=== PATIENT | male | born 2005 | race Caucasian/White ===

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

== ENCOUNTER → 2023-05-08 09:00 | Outpatient (CLI) | payer MEDICAID, SELFPAY ==
[2023-05-08 23:13] LABS: Amphetamine/Metha Screen,Urine Negative ng/ml (<1000); Barbiturates Screen,Urine Negative ng/ml (<200)
[2023-05-08 23:15] LABS: Benzodiazepines Screen,Urine Negative ng/ml (<200)
[2023-05-08 23:17] LABS: Cocaine Screen,Urine Negative ng/ml (<300); Methadone Screen,Urine Negative ng/ml (<300)
[2023-05-08 23:18] LABS: Opiate Screen,Urine Negative ng/ml (<300)
[2023-05-08 23:19] LABS: Phencyclidine Screen,Urine Negative ng/ml (<25)
[2023-05-08 23:24] LABS: Cannabinoid Screen,Urine Positive ng/ml (<50)
== END ==
PROVIDERS: PCP Physician Assistant; Visit Provider Family Medicine
DX: Z79.899 Other long term (current) drug therapy (principal)
CPT/HCPCS: 80305

== ENCOUNTER 2023-06-10 18:11 | Outpatient (CLI) | payer MEDICAID, SELFPAY ==
[2023-06-10 21:07] LABS: Barbiturates Screen,Urine Negative ng/ml (<200); Benzodiazepines Screen,Urine Negative ng/ml (<200); Cannabinoid Screen,Urine Positive ng/ml (<50); Methadone Screen,Urine Negative ng/ml (<300); Opiate Screen,Urine Negative ng/ml (<300); Phencyclidine Screen,Urine Negative ng/ml (<25)
[2023-06-10 21:13] LABS: Cocaine Screen,Urine Negative ng/ml (<300)
[2023-06-11 14:53] LABS: Amphetamine/Metha Screen,Urine Negative ng/ml (<1000)
[2023-06-14 08:44] LABS: Amphetamines Negative (Cutoff=500)
== END 2023-06-10 23:59 ==
LOC: LAB.DROPOF 18:12
PROVIDERS: PCP Physician Assistant; Visit Provider Physician Assistant
DX: F90.9 Attention-deficit hyperactivity disorder, unspecified type (principal)
CPT/HCPCS: 80307; 80324